=== PATIENT | male | born 1940 | race Caucasian/White ===

== ENCOUNTER 2018-06-15 16:49 | Emergency (ER) | payer MEDICARE, BC ==
[2018-06-15] MEDS ORDERED: Losartan 25 MG Tab ONE (17:52)
--- NOTE | 2018-06-15 22:57 | ER ---
Date of Service: 06/15/2018 HPI: This 78-year-old male was here with complaints of nosebleeds from the right naris, this started about 4 o'clock this afternoon, it was roughly 1 hour ago. This patient states he gets a nosebleed once or twice a year and it is usually hard to stop. He has had problems with nosebleeds for quite a few years. He has not had any recent falls or injuries. He has not injured his nose today to his knowledge. He states it just starts to bleed. They will get better after a while, but it always seems to start bleeding again. CURRENT MEDICATIONS: Include losartan, Tylenol, and HCTZ. He is not on any blood thinners and tells me he does not use a baby aspirin because of problems with nosebleeds and muscle aches. OBJECTIVE: GENERAL APPEARANCE: The patient is awake and alert. No obvious distress. VITAL SIGNS: Reviewed. Blood pressure initially 192/98. Physical exam, examining the patient's right naris reveals a large clot in the narrow opening. There is a small amount of the seeping blood present at this time. TREATMENT PLAN: The clot was removed manually, and I put in Vaseline gauze, putting in 3 small packets, each packet was 1 inch x 8 inches in size. The patient's right naris held 3 packets. We monitored the patient then, and he still had some seepage and was coughing up some blood-tinged sputum. After monitoring him for about 20 minutes, it was decided to change to a rhino rocket, which we did. This did stop the patient's bleeding. We only managed to get 20 cc of air injected into the balloon and the patient could not tolerate this. We monitored him for about 5 minutes after which I removed 2 cc of air and he stated that this felt better, but it was still making him miserable. I removed another 2 cc, so ended up with a total of 14 cc of air. At this point, the patient was comfortable. He states it still felt like pressure, but it was not painful. His blood pressure did spike up. During this timeframe, he had 1 reading of 223/107. As soon as we removed some of the pressure, his blood pressure started to drop, but stayed in the 190s/100 range for 3 readings. At this point, we gave the patient losartan 25 mg p.o. and HCTZ 25 mg p.o. He has had slowly doubling his daily dose of his usual blood pressure medications. The patient was monitored for another 30 minutes and the blood pressure dropped down into the 160s/90s. He states that he feels good and is not having any further bleeding episodes. At this point, he will be discharged to go home. I do want the patient keep the rhino rocket in for 48 hours or longer before coming back to have it removed. He may need a referral to ENT depending on how often he has ongoing issues with nosebleeds. The patient is here with another family member. They have no further questions and agree with the treatment plan. DIAGNOSIS: Epistaxis, right naris. CRS/MODL /[id number] MTDD
== END 2018-06-15 18:30 | disposition home or self-care (01) ==
LOC: LB.ED 16:49
DX: R04.0 Epistaxis (principal)
CPT/HCPCS: 30903; 99282; 99283-25

== ENCOUNTER 2018-07-06 19:00 | Emergency (ER) | payer MEDICARE, BC ==
[2018-07-06] MEDS ORDERED: Lidocaine 4% Top Soln 50 ML Bottle MUCMEM ONE (19:25)
[2018-07-06] MEDS ORDERED: Oxymetazoline 0.05% Nasal Spray 30 ML Bottle NAS ONE (19:25)
--- NOTE | 2018-07-06 19:51 | EDM.PDOC ---
ED HPI GENERAL MEDICAL PROBLEM - General Chief Complaint: ENT Problem Stated Complaint: BLOODY NOSE Time Seen by Provider: 07/06/18 19:10 Source of Information: Reports: Patient, Family, RN History Limitations: Reports: No Limitations - History of Present Illness INITIAL COMMENTS - FREE TEXT/NARRATIVE: 78 yr male presents with epistaxis from right nares. States he was just down to [place] for a physician visit and this started. Dr Jaime MD here to assess. Pt was instructed to pinch bridge of nose for 5 minutes. Bleeding persisted. pt had just had a rhino rocket to nares about 1 month ago.. - Related Data Allergies Allergy/AdvReac Type Severity Reaction Status Date / Time aspirin Allergy Muscle Verified 06/15/18 17:11 Aches lisinopril Allergy Cough Verified 06/15/18 17:11 naproxen sodium [From Aleve] AdvReac Muscle Verified 07/04/13 19:38 Aches Home Meds: Home Meds Acetaminophen [Tylenol] 325 mg PO Q4H PRN 06/15/18 [History] Losartan Potassium 25 mg PO DAILY 06/15/18 [History] hydroCHLOROthiazide [Hydrochlorothiazide] 25 mg PO DAILY 06/15/18 [History] Past Medical History - Past Health History Medical/Surgical History: Denies Medical/Surgical History ED ROS GENERAL - Review of Systems Review Of Systems: See Below Constitutional: Reports: No Symptoms HEENT: Reports: Hearing Loss, Nosebleed Respiratory: Reports: No Symptoms Cardiovascular: Reports: No Symptoms GI/Abdominal: Reports: No Symptoms ED EXAM, GENERAL - Physical Exam Exam: See Below Exam Limited By: No Limitations General Appearance: Alert, No Apparent Distress Ears: Hearing Loss Nose: Nasal Drainage, Other (bleeding from nose/right nares) Throat/Mouth: Normal Inspection, Normal Voice, No Airway Compromise Head: Atraumatic, Normocephalic Neck: Normal Inspection, Supple, Non-Tender Respiratory/Chest: No Respiratory Distress Course - Re-Assessments/Exams Free Text/Narrative Re-Assessment/Exam: 07/06/18 19:49 Rhino rocket applied to right nares with assist of Dr Sandoval. Nasal spray and lidocaine applied to rhino rocket. 3cc air applied to rhino rocket. Pt states it feels like bleeding has stopped. Pt is coughing up some blood tinged sputum. Recommend RTC in 48 hour for removal of rhino rocket. Will discharge pt to care of . Departure - Departure Time of Disposition: 19:55 Disposition: Home, Self-Care 01 Condition: Good Clinical Impression: Epistaxis - Discharge Information *PRESCRIPTION DRUG MONITORING PROGRAM REVIEWED*: Not Applicable *COPY OF PRESCRIPTION DRUG MONITORING REPORT IN PATIENT FELICIANO: Not Applicable Instructions: Nosebleed, Adult Referrals: PCP,None [Primary Care Provider] - Forms: ED Department Discharge Additional Instructions: Keep rhino rocket in nose until . Go into the clinic on and have rhino rocket removed. Call tomorrow to make appt. May use saline spray in other nostril to keep moist. Follow up as needed. Keep appointment you already have scheduled in [place] in August.
[2018-07-06 20:45] VITALS: BP 151/83
== END 2018-07-06 19:48 | disposition home or self-care (01) ==
LOC: LB.ED 19:08
DX: R04.0 Epistaxis (principal); Z88.8 Allergy status to other drugs, medicaments and biological substances
CPT/HCPCS: 30901; 30903; 99282; 99283-25; A9270-GY